=== PATIENT | female | born 1965 | race Two or more races ===

== ENCOUNTER 2017-08-28 05:49 | Inpatient (IN) | payer BC ==
[2017-08-28] VITALS (26 sets, daily range): BP systolic 87–121; BP diastolic 49–84; PULSE 86–120; RESP 11–20; Ht 170.2 cm; Wt 79.2 kg
[~2017-08-28] VITALS: Ht 170.2 cm; Wt 79.2 kg
[~2017-08-28 05:49] MED LIST: AMIT10TA6 PO; CETI-240 PO; CYCL-319 PO; FOLI-49 PO; GABA300C PO; LISI20TA11 PO; MELO-210 PO; METF500T4 PO; PREG150C PO; SIMV40TA2 PO
--- NOTE | 2017-08-28 07:04 | HPN ---
Date/Time of Note Date/Time of Note DATE: 08/28/17 TIME: 07:03 Interval H&P Admission Note Pt. seen H&P reviewed: No system changes PEBBLES PIMENTEL MD Aug 28, 2017 07:03
[2017-08-28] MEDS ORDERED: METF500T4 PO (07:26)
[2017-08-28] MEDS ORDERED: CYCLOBENZAPRINE 10 MG TAB PO PRN (07:30)
[2017-08-28] MEDS ORDERED: DIPHENHYDRAMINE 50 MG INJ IV PRN ×2 (07:30→09:30)
[2017-08-28] MEDS ORDERED: HYDROmorphONE 1 MG/ML SYG IV PRN (07:30)
[2017-08-28] MEDS ORDERED: MAGNESIUM HYDROXIDE 30ML CUP PO PRN (07:30)
[2017-08-28] MEDS ORDERED: ONDANSETRON 4 MG INJ IV PRN ×2 (07:30→09:30)
[2017-08-28] MEDS ORDERED: ACETAMINOPHEN 325 MG TAB PO PRN (07:30)
[2017-08-28] MEDS ORDERED: DIPHENHYDRAMINE 25 MG CAP PO PRN (07:30)
[2017-08-28] MEDS ORDERED: PROCHLORPERAZINE 10 MG INJ IV PRN ×2 (07:30→09:30)
[2017-08-28] MEDS ORDERED: CEPASTAT LOZENGE MT PRN (07:30)
[2017-08-28] MEDS ORDERED: HYDROCODONE/APAP (5/325) TAB PO PRN (07:30)
[2017-08-28] MEDS ORDERED: NALOXONE (0.4 MG/ML) INJ IV PRN (07:30)
[2017-08-28] MEDS ORDERED: BUPIVACAINE 0.25% (MPF) 30 ML INJ ONE (07:39)
[2017-08-28] MEDS ORDERED: GELATIN SIZE 100 SPONGE ONE (07:39)
[2017-08-28] MEDS ORDERED: CA CHLORIDE 10% 10 ML SYRINGE ONE (07:40)
[2017-08-28] MEDS ORDERED: THROMBIN 5000 UNIT VIAL ONE (07:40)
[2017-08-28] MEDS ORDERED: POLYMYXIN/BACITRACIN 1L IRRIG ONE (07:48)
[2017-08-28] MEDS ORDERED: SUCCINYLCHOLINE CHLORIDE 100 MG/5 ML SYG IV ONE (07:51)
[2017-08-28] MEDS ORDERED: PROPOFOL 20 ML ONE (07:51)
[2017-08-28] MEDS ORDERED: LIDOCAINE 2% (SDV) 5 ML INJ ONE (07:51)
[2017-08-28] MEDS ORDERED: FENTAnyl 50 MCG/ML VIAL ONE ×2 (07:52→09:56)
[2017-08-28] MEDS ORDERED: MIDAZOLAM 1 MG/ML 2 ML INJ ONE (07:52)
[2017-08-28] MEDS ORDERED: OCULAR LUBRICANT 3.5 GM OPH OINT ONE (07:59)
[2017-08-28] MEDS ORDERED: CEFAZOLIN 1 GM INJ ONE (08:33)
[2017-08-28] MEDS ORDERED: METOCLOPRAMIDE 10 MG INJ ONE (08:33)
[2017-08-28] MEDS ORDERED: ONDANSETRON 4 MG INJ ONE ×2 (08:33→10:41)
[2017-08-28] MEDS ORDERED: DEXAMETHASONE 4 MG/ML 1 ML INJ ONE (08:33)
[2017-08-28] MEDS ORDERED: PHENYLephrine (100 MCG/ML) 5ML SYG ONE (08:44)
[2017-08-28] MEDS ORDERED: POLYMYXIN/BACITRACIN 1L IRRIG IRR ONE (08:51)
[2017-08-28] MEDS ORDERED: ROCURONIUM 50 MG INJ ONE (08:51)
[2017-08-28] MEDS ORDERED: BUPIVACAINE 0.5% (SDV) 30 ML INJ INJ ONE (08:51)
[2017-08-28] MEDS ORDERED: HYDROmorphONE 2 MG/ML SYG ONE (08:52)
[2017-08-28] MEDS ORDERED: ACETAMINOPHEN 1000MG/100ML IV 100 ML ONE (08:54)
[2017-08-28] MEDS ORDERED: PREGABALIN 75 MG CAP PO SCH (09:00)
[2017-08-28] MEDS ORDERED: EPHEDrine SULFATE 50 MG/5 ML SYG ONE (09:13)
[2017-08-28] MEDS ORDERED: hydrALAzine 20 MG INJ IV PRN (09:30)
[2017-08-28] MEDS ORDERED: INSULIN ASPART [NOVOLOG] 3 ML PEN SC ONE (09:30)
[2017-08-28] MEDS ORDERED: HYDROmorphONE (0.2 MG/ML) 10ML SYG IV PRN ×2 (09:30)
[2017-08-28] MEDS ORDERED: FENTAnyl 50 MCG/ML VIAL IV PRN (09:30)
[2017-08-28] MEDS ORDERED: LABETALOL HCL 20MG INJ IV PRN (09:30)
[2017-08-28] MEDS ORDERED: EPHEDrine SULFATE 50 MG/5 ML SYG IV PRN (09:30)
[2017-08-28] MEDS ORDERED: MEPERIDINE 25 MG INJ IV PRN (09:30)
[2017-08-28] MEDS ORDERED: SUGAMMADEX SODIUM 200 MG/2 ML VIAL IV ONE (10:37)
--- NOTE | 2017-08-28 11:33 | SIPON ---
Date/Time of Note Date/Time of Note DATE: 08/28/17 TIME: 11:31 Operative Report Preoperative Diagnosis L3-S1 stenosis Postoperative Diagnosis same Operation/Procedure Performed L3-S1 central decompressive laminectomy Surgeon Hernando assistant printer floor covering DAGOBERTO Tomlin Anesthesia: general Estimated blood loss: 50 - 100 ml's Transfusion Required none Specimen none Grafts/Implants none Complications none PEBBLES PIMENTEL MD Aug 28, 2017 11:33
[2017-08-28] MEDS ORDERED: METOPROLOL 5 MG INJ IV ONE (12:00)
[2017-08-28] MEDS ORDERED: HYDROmorphONE 0.2 MG/ML PCA IV SCH (12:00)
[2017-08-28] MEDS ORDERED: METOPROLOL 5 MG INJ ONE (12:02)
--- NOTE | 2017-08-28 12:30 | OPR ---
DATE OF OPERATION: 08/28/2017 PREOPERATIVE DIAGNOSIS: L3 to S1 central stenosis. POSTOPERATIVE DIAGNOSIS: L3 to S1 central stenosis. OPERATION PERFORMED: 1. L3 to S1 central decompressive laminectomy with removal of spinous processes of L3, L4 and L5. 2. Partial fasciectomy and foraminotomy at L3-4. 3. Partial fasciectomy and foraminotomy at L4-5. 4. Partial fasciectomy and foraminotomy at L5-S1. 5. Decompression of exiting and traversing nerve root at L3-4. 6. Decompression of exiting and traversing nerve root at L4-5. 7. Decompression of exiting and traversing nerve root at L5-S1. 8. Use of intraoperative microscope for microdissection. 9. Use of intraoperative neuro monitoring during entire surgical procedure. 10. Use of intraoperative fluoroscopy for localization. 11. Epidural pain medication injection with 0.25 percent Marcaine with epinephrine for postop analgesia and catheter removed. 12. Cosmetic closure of 6 cm incision. SURGEON: Avelino Villagomez MD HEAD MILLER: DAGOBERTO Cheatham ANESTHESIA: General. ANESTHESIOLOGIST: Mere Evans MD ESTIMATED BLOOD LOSS: 50-100 mL. TRANSFUSION: None. SPECIMENS: None. GRAFTS AND IMPLANTS: NuShield barrier. COMPLICATIONS: None. BRIEF PREOPERATIVE HISTORY: The patient is a 52-year-old female with a history of breast cancer and diabetes, who presented with significant lower extremity neuro claudication secondary to severe stenosis at multiple levels seen on MRI at L3-4, L4-5, L5- S1. The patient was indicated for surgical procedure after failing conservative management. The patient was consented for the surgical procedure as stated above and consented for the central decompressive laminectomy, platelet rich plasma as well as epidural pain medication and possible adjacent level. The patient understood the risks, benefits, and alternatives. OPERATION IN DETAIL: The patient was brought to the operating room, placed under anesthesia by Dr. Evans and given 2 g of Ancef. The patient was turned prone onto Bruce frame. All bony prominences were appropriately padded. Lumbar spine was prepped and draped in the usual sterile fashion. Tuohy spinal needle was placed on a lateral localizing fluoroscopic image for verification of proper level for incision length and started with our incision after 0.25 percent Marcaine with epinephrine was injected subcutaneously. A subperiosteal dissection was taken out to L3, L4 and L5 bilaterally. Retractors were placed and Kochers were placed within the wound for verification on the spinous process of our decompressive levels, which were verified for L3-4, L4-5 and L5- S1. We removed the spinous processes of L3, L4 and L5 and then started with our decompressive procedure with removing the central decompressive laminectomy and bilateral partial fasciectomies and foraminotomies at L3-4, L4-5, and L5-1, respectively. At L3-4, we decompressed the exiting L3 traversing L4 nerve root. At L4-5, we decompressed the exiting L4 and traversing L5 nerve root. At L5-S1, we decompressed the exiting and traversing nerve roots. This was all done under microscope. At the conclusion of the decompression, verified exiting and traversing nerve roots at each level and maintaining hemostasis using FloSeal as well as bipolar cautery. Copious irrigation and verified decompression. Once completed, we placed the epidural catheter and epidural space injected with 4 mL of 0.25 percent Marcaine and 100 mcg of Fentanyl. We removed the catheter. At this time, we also placed a NuShield barrier over the old exposed thecal sac and started with our closing procedure over a medium Hemovac drain that was secured with 2-0 nylon. The fascia was closed with number 1 Vicryl, the subcutaneous with 2-0 Vicryl and running 4-0 Monocryl. The subcutaneous was injected with 0.25 percent Marcaine for postop analgesia. I placed Dermabond over the wound, secured down with Tegaderm, and the patient was turned supine onto the hospital bed, taken to recovery room in stable condition. All instruments, sponge counts, and needles were correct at the conclusion of the procedure. The patient had no complications and will be admitted for postop pain control, physical therapy, antibiotics, and discharged when appropriate. Dictated By: Avelino Villagomez MD /[email or web address]/[email or web address] /Document#: [id number] BOOGIE
--- NOTE | 2017-08-28 13:29 | RADRPT ---
PROCEDURE: Intraoperative imaging of the lumbar spine with fluoroscopy. CLINICAL INDICATION: Back pain. Intraoperative. TECHNIQUE: 6 images of the lumbar spine were obtained in the operating room with an image intensif ier. No radiologist was in attendance. Fluoroscopy time is 13.9 seconds. COMPARISON: No prior study is available for comparison. FINDINGS: Images demonstrate posterior surgical instruments in the lumbar spine. IMPRESSION: 1. Intraoperative imaging of the lumbar spine. RPTAT: QQ .Tex Ramos MD, MD Date Time Electronically viewed and signed by .Tex Ramos MD, MD on 08/28/2017 13:29 .R/
[2017-08-28] MEDS: DOCUSATE SODIUM 100 MG CAP PO SCH ×2 (14:31→20:30)
[2017-08-28] MEDS: FOLIC ACID 1 MG TAB PO SCH (14:32)
[2017-08-28] MEDS: LISINOPRIL 20 MG TAB PO SCH (14:32)
[2017-08-28] MEDS: CEFAZOLIN 1 GM/50 ML (PMX) 50 ML IVPB SCH ×2 (14:33→20:29)
[2017-08-28 14:58] LABS: BASOPHILS % 0.3 % (0.0-2.0); EOSINOPHILS % 0.1 % (0.0-7.0); HEMATOCRIT 39.9 % (37.0-47.0); HEMOGLOBIN 12.8 g/dl (12.0-16.0); LYMPHOCYTES # 1.2 10^3/ul (0.8-2.9); LYMPHOCYTES % 12.6 % (15.0-51.0); MEAN CORPUSCULAR HEMOGLOBIN 30.5 pg (29.0-33.0); MEAN CORPUSCULAR HGB CONC 32.1 g/dl (32.0-37.0); MEAN CORPUSCULAR VOLUME 95.2 fl (82.0-101.0); MONOCYTE # 0.1 10^3/ul (0.3-0.9); MONOCYTES % 1.4 % (0.0-11.0); NEUTROPHIL # 8.4 10^3/ul (1.6-7.5); NEUTROPHILS % 85.1 % (39.0-77.0); PLATELET COUNT 190 10^3/UL (140-415); RED BLOOD COUNT 4.19 10^6/ul (4.20-5.40); RED CELL DISTRIBUTION WIDTH 12.4 % (11.5-14.5); WHITE BLOOD COUNT 9.8 10^3/ul (4.8-10.8)
[2017-08-28 15:21] LABS: CREATININE 0.67 mg/dl (0.44-1.00); POTASSIUM 3.8 mmol/L (3.5-5.1)
--- NOTE | 2017-08-28 17:06 | CONS ---
DATE OF ADMISSION: 08/28/2017 DATE OF CONSULTATION: 08/28/2017 CHIEF COMPLAINT: This is a 52-year-old female who was brought in for laminectomy surgery. 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 This was performed by the surgeon. They ask for medical consult request. Patient denies any present chest pain or shortness of breath. No nausea, vomiting, or fevers or chills, or diarrhea or constipation. She is on a CARDIOLOGY TECHNOLOGIST pump presently and has a Hemovac in place. Apparently, she had been having lower extremity claudication prior to the surgery and the decision was made based on the MRI findings of severe stenosis in L3 to S1 to perform the surgery that has been mentioned above earlier today. PAST MEDICAL HISTORY: Above. ALLERGIES: NO KNOWN DRUG ALLERGIES. HOME MEDICATIONS: Cetirizine 10 mg daily, cyclobenzaprine 10 mg t.i.d., lisinopril 20 mg daily, Zocor 40 mg at bedtime, amitriptyline 10 mg at bedtime, Neurontin 300 mg at bedtime, Mobic 50 mg daily, Lyrica 150 mg daily, metformin 500 mg daily, folic acid 1 mg daily. PAST SURGICAL HISTORY: in the past and breast cancer surgery in the past including implant and reconstruction. SOCIAL HISTORY: Negative for smoking, drinking, IV drug abuse. FAMILY HISTORY: Mother has diabetes and high cholesterol. Father has diabetes and high cholesterol. PHYSICAL EXAMINATION: VITAL SIGNS: Today vital signs, T-max 98, pulse is 94-108, respirations 13-17, blood pressure is 108/70, satting at 94-96% room air. GENERAL: Patient is lying in bed, answers question appropriately, slight lethargic but in no acute distress. HEENT: Pupils equal, round, react to light. Extraocular muscles intact. NECK: Supple. No thyromegaly. LUNGS: Clear to auscultation bilaterally. HEART: S1, S2 heard. No rubs or gallops. ABDOMEN: Soft, nontender, nondistended. Normal bowel sounds. No rebound or guarding. MUSCULOSKELETAL: No lower extremity edema bilaterally. NEUROLOGIC: No focal deficits. LABORATORY: There are no new labs from this morning. ASSESSEMENT AND PLAN: A 52-year-old female, status post laminectomy at L3 to S1 earlier today for severe stenosis of L3 to S1 after experiencing claudication with prior history of breast cancer, diabetes, hypertension, high cholesterol. 1. Status post laminectomy for severe stenosis. Again, continue to follow postop recommendations from primary team including CARDIOLOGY TECHNOLOGIST pump for pain control medications, monitor Hemovac, physical therapy. Follow up postop recommendations. 2. Essential hypertension. Continue current medications ordered by primary team. 3. Diabetes. Continue metformin. Monitor sugars. 4. High cholesterol. Continue current medications. Consider checking lipid panel. 5. History of prior breast cancer. Continue to monitor for now. We will continue to follow along with you. Dictated By: Anton Medina MD /[email or web address]/[email or web address] /Document#: [id number]
[2017-08-28] MEDS: GABAPENTIN 300 MG CAP PO SCH (20:30)
[2017-08-28] MEDS: AMITRIPTYLINE 10 MG TAB PO SCH (22:47)
[2017-08-29 00:23] VITALS: BP 90/52; RESP 18
[2017-08-29] MEDS: CEFAZOLIN 1 GM/50 ML (PMX) 50 ML IVPB SCH (04:55)
[2017-08-29] MEDS: PANTOPRAZOLE (EC) 40 MG TAB PO SCH (05:04)
[2017-08-29 05:12] LABS: BASOPHILS % 0.1 % (0.0-2.0); HEMATOCRIT 30.6 % (37.0-47.0); LYMPHOCYTES # 1.6 10^3/ul (0.8-2.9); LYMPHOCYTES % 15.1 % (15.0-51.0); MEAN CORPUSCULAR HEMOGLOBIN 29.2 pg (29.0-33.0); MEAN CORPUSCULAR HGB CONC 32.7 g/dl (32.0-37.0); MEAN CORPUSCULAR VOLUME 89.5 fl (82.0-101.0); MEAN PLATELET VOLUME 10.2 fl (7.4-10.4); MONOCYTE # 0.6 10^3/ul (0.3-0.9); NEUTROPHIL # 8.1 10^3/ul (1.6-7.5); NEUTROPHILS % 78.1 % (39.0-77.0); PLATELET COUNT 199 10^3/UL (140-415); RED BLOOD COUNT 3.42 10^6/ul (4.20-5.40); RED CELL DISTRIBUTION WIDTH 12.6 % (11.5-14.5); WHITE BLOOD COUNT 10.4 10^3/ul (4.8-10.8)
[2017-08-29 05:48] LABS: CALCIUM 8.4 mg/dl (8.4-10.2); CREATININE 0.64 mg/dl (0.44-1.00); POTASSIUM 3.9 mmol/L (3.5-5.1)
[2017-08-29 08:18] VITALS: BP 90/55; RESP 14
[2017-08-29] MEDS: LISINOPRIL 20 MG TAB PO SCH (08:43)
[2017-08-29] MEDS: FOLIC ACID 1 MG TAB PO SCH (08:44)
[2017-08-29] MEDS: DOCUSATE SODIUM 100 MG CAP PO SCH ×2 (08:44→20:58)
[2017-08-29] MEDS: metFORMIN 500 MG TAB PO SCH (08:44)
[2017-08-29] MEDS: HYDROCODONE/APAP (5/325) TAB PO PRN ×2 (10:04→17:13)
[2017-08-29 10:14] VITALS: BP 97/55; PULSE 114; RESP 16
--- NOTE | 2017-08-29 12:46 | PN ---
Date/Time of Note Date/Time of Note DATE: 08/29/17 TIME: 12:44 Assessment/Plan VTE Prophylaxis VTE Prophylaxis Intervention: ambulation, SCD's VTE Contraindication Reason: bleeding Lines/Catheters IV Catheter Type (from Nrsg): Saline Lock Urinary Cath still in place: No Assessment/Plan Chief Complaint/Hosp Course doing well after lumbar surgery Problems: Assessment/Plan s/p L3-S1 lumbar laminectomy bolus for low BP in 90's pain control with PO meds [place] and Flexeril Drain removed DC plan for tomorrow Wound CDI Calfs soft IS Ambulation soft corset, no brace needed Exam/Review of Systems Vital Signs Vitals Vital Signs Date Time Temp Pulse Resp B/P Pulse Ox O2 Delivery O2 Flow Rate FiO2 08/29/17 10:14 98.8 114 16 97/55 98 Room Air 08/28/17 21:55 2.0 Intake and Output 08/28/17 08/28/17 08/29/17 15:00 23:00 07:00 Intake Total 1300 ml 580 ml 950 ml Output Total 440 ml 970 ml 920 ml Balance 860 ml -390 ml 30 ml Results Result Diagram: 08/29/17 0444 08/29/17 0444 Results 24 hrs Laboratory Tests Test 08/28/17 14:48 08/29/17 04:44 White Blood Count 9.8 10.4 Red Blood Count 4.19 L 3.42 L Hemoglobin 12.8 10.0 #L Hematocrit 39.9 30.6 #L Mean Corpuscular Volume 95.2 89.5 Mean Corpuscular Hemoglobin 30.5 29.2 Mean Corpuscular Hemoglobin Concent 32.1 32.7 Red Cell Distribution Width 12.4 12.6 Platelet Count 190 199 Mean Platelet Volume 10.0 10.2 Neutrophils % 85.1 H 78.1 H Lymphocytes % 12.6 L 15.1 Monocytes % 1.4 6.0 Eosinophils % 0.1 0.0 Basophils % 0.3 0.1 Nucleated Red Blood Cells % 0.0 0.0 Neutrophils # 8.4 H 8.1 H Lymphocytes # 1.2 1.6 Monocytes # 0.1 L 0.6 Eosinophils # 0.0 0.0 Basophils # 0.0 0.0 Nucleated Red Blood Cells # 0.0 0.0 Sodium Level 141 138 Potassium Level 3.8 3.9 Chloride Level 102 105 Carbon Dioxide Level 28 28 Anion Gap 15 9 # Blood Urea Nitrogen 10 11 Creatinine 0.67 0.64 Glucose Level 156 120 Calcium Level 9.0 8.4 Medications Medications Current Medications Acetaminophen/ Hydrocodone Bitart ([place] (5/325)) 1 tab Q4H PRN PO PAIN LEVEL 1 -5; Start 08/28/17 at 07:30 Acetaminophen/ Hydrocodone Bitart ([place] (5/325)) 2 tab Q4H PRN PO PAIN LEVEL 6 -10 Last administered on 08/29/17 10:04; Admin Dose 2 TAB; Start 08/28/17 at 07 :30 Hydromorphone HCl (Dilaudid) 0.2 mg Q1H PRN IV BREAKTHROUGH PAIN; Start at 07:30 Ondansetron HCl (Zofran Inj) 4 mg Q6H PRN IV NAUSEA AND/OR VOMITING; Start at 07:30 Prochlorperazine (Compazine Inj) 10 mg Q6H PRN IV NAUSEA AND/OR VOMITING; Start 08/28/17 at 07:30 Docusate Sodium (Colace) 100 mg BID PO Last administered on 08/29/17 08:44; Admin Dose 100 MG; Start 08/28/17 at 09:00 Pantoprazole (Protonix Tab) 40 mg DAILY@06 PO Last administered on 08/29/17 05 :04; Admin Dose 40 MG; Start 08/29/17 at 06:00 Magnesium Hydroxide (Milk Of Mag) 30 ml HS PRN PO CONSTIPATION/DYSPEPSIA; Start 08/28/17 at 07:30 Acetaminophen (Tylenol Tab) 650 mg Q4H PRN PO [place] OR TEMP GREATER THAN 101.3F; Start 08/28/17 at 07:30 Phenol (Cepastat Lozenge) 1 lozenge PRN PRN MT SORE THROAT; Start 08/28/17 at 07:30 Diphenhydramine HCl (Benadryl) 25 mg Q6H PRN PO ITCHING; Start 08/28/17 at 07: 30 Diphenhydramine HCl (Benadryl) 25 mg Q6H PRN IV ITCHING; Start 08/28/17 at 07: 30 Naloxone HCl (Narcan) 0.2 mg Q2M PRN IV RR 8 BREATHS/MIN OR LESS; Start at 07:30 Hydromorphone HCl (Dilaudid TAR PROCESSING TECHNICIAN) TAR PROCESSING TECHNICIAN to be started in PACU Q4PCA IV Last administered on 08/28/17 12:10; Admin Dose 6 MG; Start 08/28/17 at 12:00 Miscellaneous Information 1. Hold TAR PROCESSING TECHNICIAN at 1,000... TAR PROCESSING TECHNICIAN IV ; Start 08/28/17 at 07: 30 Amitriptyline HCl (Elavil) 10 mg QHS PO Last administered on 08/28/17 22:47; Admin Dose 10 MG; Start 08/28/17 at 21:00 Folic Acid (Folic Acid) 1 mg DAILY PO Last administered on 08/29/17 08:44; Admin Dose 1 MG; Start 08/28/17 at 09:00 Gabapentin (Neurontin) 300 mg QHS PO Last administered on 08/28/17 20:30; Admin Dose 300 MG; Start 08/28/17 at 21:00 Lisinopril (Zestril) 20 mg DAILY PO ; Start 08/28/17 at 09:00 Cyclobenzaprine HCl (Flexeril) 10 mg TID PRN PO MUSCLE SPASMS; Start 08/28/17 at 07:30 PEBBLES PIMENTEL MD Aug 29, 2017 12:46
[2017-08-29] MEDS: CYCLOBENZAPRINE 10 MG TAB PO PRN (12:50)
--- NOTE | 2017-08-29 12:55 | PN ---
Date/Time of Note Date/Time of Note DATE: 08/29/17 TIME: 12:40 Assessment/Plan VTE Prophylaxis VTE Prophylaxis Intervention: ambulation Lines/Catheters IV Catheter Type (from Nrs): Saline Lock Urinary Cath still in place: Yes Reason Cath still needed: urinary retention Assessment/Plan Chief Complaint/Hosp Course ASSESSEMENT AND PLAN: 52-year-old female, status post laminectomy at L3 to S1 for severe stenosis of L3 to S1 POD# 1, performed after experiencing claudication with prior history of breast cancer, diabetes, hypertension, high cholesterol. 1. Status post laminectomy for severe stenosis. Again, POD # 1 - continue to follow postop recommendations from primary team including TOOL BUILDER pump for pain control medications, monitor Hemovac, physical therapy. - Follow up postop recommendations. 2. Essential hypertension. Continue current medications ordered by primary team. 3. Diabetes. Continue metformin. Monitor sugars. 4. High cholesterol. Continue current medications. Consider checking lipid panel. 5. History of prior breast cancer. Continue to monitor for now. 6. hypotension - asymptomatic sys bp = 90's - will give 250 NS bolus x 1, monitor We will continue to follow along with you. Problems: Subjective 24 Hr Interval Summary Free Text/Dictation No acute events overnight, seen by ortho team this AM. Exam/Review of Systems Vital Signs Vitals Vital Signs Date Time Temp Pulse Resp B/P Pulse Ox O2 Delivery O2 Flow Rate FiO2 08/29/17 10:14 98.8 114 16 97/55 98 Room Air 08/28/17 21:55 2.0 Intake and Output 08/28/17 08/28/17 08/29/17 15:00 23:00 07:00 Intake Total 1300 ml 580 ml 950 ml Output Total 440 ml 970 ml 920 ml Balance 860 ml -390 ml 30 ml Exam GENERAL: Patient is lying in bed, answers question appropriately, slight lethargic but in no acute distress. HEENT: Pupils equal, round, react to light. Extraocular muscles intact. NECK: Supple. No thyromegaly. LUNGS: Clear to auscultation bilaterally. HEART: S1, S2 heard. No rubs or gallops. ABDOMEN: Soft, nontender, nondistended. Normal bowel sounds. No rebound or guarding. MUSCULOSKELETAL: No lower extremity edema bilaterally. NEUROLOGIC: No focal deficits. Results Result Diagram: 08/29/17 0444 08/29/17 0444 Results 24 hrs Laboratory Tests Test 08/28/17 14:48 08/29/17 04:44 White Blood Count 9.8 10.4 Red Blood Count 4.19 L 3.42 L Hemoglobin 12.8 10.0 #L Hematocrit 39.9 30.6 #L Mean Corpuscular Volume 95.2 89.5 Mean Corpuscular Hemoglobin 30.5 29.2 Mean Corpuscular Hemoglobin Concent 32.1 32.7 Red Cell Distribution Width 12.4 12.6 Platelet Count 190 199 Mean Platelet Volume 10.0 10.2 Neutrophils % 85.1 H 78.1 H Lymphocytes % 12.6 L 15.1 Monocytes % 1.4 6.0 Eosinophils % 0.1 0.0 Basophils % 0.3 0.1 Nucleated Red Blood Cells % 0.0 0.0 Neutrophils # 8.4 H 8.1 H Lymphocytes # 1.2 1.6 Monocytes # 0.1 L 0.6 Eosinophils # 0.0 0.0 Basophils # 0.0 0.0 Nucleated Red Blood Cells # 0.0 0.0 Sodium Level 141 138 Potassium Level 3.8 3.9 Chloride Level 102 105 Carbon Dioxide Level 28 28 Anion Gap 15 9 # Blood Urea Nitrogen 10 11 Creatinine 0.67 0.64 Glucose Level 156 120 Calcium Level 9.0 8.4 Medications Medications Current Medications Acetaminophen/ Hydrocodone Bitart ([place] (5/325)) 1 tab Q4H PRN PO PAIN LEVEL 1 -5; Start 08/28/17 at 07:30 Acetaminophen/ Hydrocodone Bitart ([place] (5/325)) 2 tab Q4H PRN PO PAIN LEVEL 6 -10 Last administered on 08/29/17t 10:04; Admin Dose 2 TAB; Start 08/28/17 at 07 :30 Hydromorphone HCl (Dilaudid) 0.2 mg Q1H PRN IV BREAKTHROUGH PAIN; Start at 07:30 Ondansetron HCl (Zofran Inj) 4 mg Q6H PRN IV NAUSEA AND/OR VOMITING; Start at 07:30 Prochlorperazine (Compazine Inj) 10 mg Q6H PRN IV NAUSEA AND/OR VOMITING; Start 08/28/17 at 07:30 Docusate Sodium (Colace) 100 mg BID PO Last administered on 08/29/17 08:44; Admin Dose 100 MG; Start 08/28/17 at 09:00 Pantoprazole (Protonix Tab) 40 mg DAILY@06 PO Last administered on 08/29/17 05 :04; Admin Dose 40 MG; Start 08/29/17 at 06:00 Magnesium Hydroxide (Milk Of Mag) 30 ml HS PRN PO CONSTIPATION/DYSPEPSIA; Start 08/28/17 at 07:30 Acetaminophen (Tylenol Tab) 650 mg Q4H PRN PO [place] OR TEMP GREATER THAN 101.3F; Start 08/28/17 at 07:30 Phenol (Cepastat Lozenge) 1 lozenge PRN PRN MT SORE THROAT; Start 08/28/17 at 07:30 Diphenhydramine HCl (Benadryl) 25 mg Q6H PRN PO ITCHING; Start 08/28/17 at 07: 30 Diphenhydramine HCl (Benadryl) 25 mg Q6H PRN IV ITCHING; Start 08/28/17 at 07: 30 Naloxone HCl (Narcan) 0.2 mg Q2M PRN IV RR 8 BREATHS/MIN OR LESS; Start at 07:30 Hydromorphone HCl (Dilaudid TOOL BUILDER) TOOL BUILDER to be started in PACU Q4PCA IV Last administered on 08/28/17 12:10; Admin Dose 6 MG; Start 08/28/17 at 12:00 Miscellaneous Information 1. Hold TOOL BUILDER at 1,000... TOOL BUILDER IV ; Start 08/28/17 at 07: 30 Amitriptyline HCl (Elavil) 10 mg QHS PO Last administered on 08/28/17 22:47; Admin Dose 10 MG; Start 08/28/17 at 21:00 Folic Acid (Folic Acid) 1 mg DAILY PO Last administered on 08/29/17 08:44; Admin Dose 1 MG; Start 08/28/17 at 09:00 Gabapentin (Neurontin) 300 mg QHS PO Last administered on 08/28/17 20:30; Admin Dose 300 MG; Start 08/28/17 at 21:00 Lisinopril (Zestril) 20 mg DAILY PO ; Start 08/28/17 at 09:00 Cyclobenzaprine HCl (Flexeril) 10 mg TID PRN PO MUSCLE SPASMS; Start 08/28/17 at 07:30 SHAMAR SHABAZZ Aug 29, 2017 12:51
[2017-08-29] MEDS ORDERED: SOD CHLORIDE 0.9% 250 ML IV ONE (13:00)
[2017-08-29 14:00] VITALS: BP 101/56; RESP 18
[2017-08-29 19:45] VITALS: BP 100/60; PULSE 70; RESP 18
[2017-08-29] MEDS: AMITRIPTYLINE 10 MG TAB PO SCH (20:58)
[2017-08-29] MEDS: GABAPENTIN 300 MG CAP PO SCH (20:58)
[2017-08-30 02:05] VITALS: BP 102/64; RESP 18
[2017-08-30] MEDS: PANTOPRAZOLE (EC) 40 MG TAB PO SCH (05:28)
[2017-08-30] MEDS: HYDROCODONE/APAP (5/325) TAB PO PRN ×3 (05:56→16:19)
[2017-08-30] MEDS: DOCUSATE SODIUM 100 MG CAP PO SCH (08:53)
[2017-08-30] MEDS: metFORMIN 500 MG TAB PO SCH (08:54)
[2017-08-30] MEDS: FOLIC ACID 1 MG TAB PO SCH (08:54)
[2017-08-30] MEDS: LISINOPRIL 20 MG TAB PO SCH (08:54)
[2017-08-30] MEDS: CYCLOBENZAPRINE 10 MG TAB PO PRN (08:57)
--- NOTE | 2017-08-30 11:18 | DS ---
Date/Time of Note Date/Time of Note DATE: 08/30/17 TIME: 11:17 Discharge Summary Admission/Discharge Info Admit Date/Time Aug 28, 2017 at 05:49 Discharge Date/Time 08/30 Discharge Diagnosis L3-S1 decompression Patient Condition: Good Consults Dr. Medina Procedures L3-S1 decompression Hx of Present Illness Diabetes, HTN, BRCA Hospital Course ASSESSEMENT AND PLAN: 52-year-old female, status post laminectomy at L3 to S1 for severe stenosis of L3 to S1 POD# 1, performed after experiencing claudication with prior history of breast cancer, diabetes, hypertension, high cholesterol. 1. Status post laminectomy for severe stenosis. Again, POD # 1 - continue to follow postop recommendations from primary team including TRAFFIC SIGNAL TECHNICIAN pump for pain control medications, monitor Hemovac, physical therapy. - Follow up postop recommendations. 2. Essential hypertension. Continue current medications ordered by primary team. 3. Diabetes. Continue metformin. Monitor sugars. 4. High cholesterol. Continue current medications. Consider checking lipid panel. 5. History of prior breast cancer. Continue to monitor for now. 6. hypotension - asymptomatic sys bp = 90's - will give 250 NS bolus x 1, monitor We will continue to follow along with you. Home Meds Reported Medications Metformin Hcl* (Metformin Hcl*) 500 Mg Tablet, 40 MG PO WITH BREAKFAST, #30 TAB 08/28/17 Pregabalin* (Lyrica*) 150 Mg Capsule, 150 MG PO DAILY, CAP 11/07/15 Simvastatin* (Zocor*) 40 Mg Tablet, 40 MG PO QHS, #30 TAB 11/07/15 Folic Acid* (Folic Acid*) 1 Mg Tablet, 1 MG PO DAILY, TAB 11/07/15 Cyclobenzaprine Hcl* (Cyclobenzaprine Hcl*) 10 Mg Tablet, 10 MG PO TID, TAB 11/07/15 Lisinopril* (Lisinopril*) 20 Mg Tablet, 20 MG PO DAILY, #30 TAB 11/07/15 Metformin* (Glucophage*) 500 Mg Tab, 500 MG PO DAILY, TAB 11/07/15 Gabapentin* (Neurontin*) 300 Mg Capsule, 300 MG PO QHS, CAP 11/07/15 Meloxicam* (Mobic*) 15 Mg Tablet, 15 MG PO DAILY, TAB 11/07/15 Cetirizine Hcl* (Cetirizine Hcl*) 10 Mg Tablet, 10 MG PO DAILY, TAB 11/07/15 Amitriptyline Hcl* (Amitriptyline Hcl*) 10 Mg Tablet, 10 MG PO QHS, #30 TAB 11/07/15 Follow-up Plan call office Primary Care Provider Eduin Feng MD Time spent on discharge: < 30 minutes PEBBLES PIMENTEL MD Aug 30, 2017 11:18
[2017-08-30 16:32] VITALS: BP 124/73; RESP 20
== END 2017-08-30 17:33 | disposition home or self-care (01) | DRG 517 ==
LOC: REC 05:49 → MS1 13:20
PROVIDERS: ADMIT Orthopaedic Surgery Orthopaedic Surgery of the Spine; ATTEND Orthopaedic Surgery Orthopaedic Surgery of the Spine
PROC: 4A11X4G Monitoring of Peripheral Nervous Electrical Activity, Intraoperative, External Approach (ICD-10-PCS; 2017-08-28)
PROC: 01NB0ZZ Release Lumbar Nerve, Open Approach (ICD-10-PCS; principal; 2017-08-28 08:00)
DX: M48.062 Spinal stenosis, lumbar region with neurogenic claudication (principal); I95.9 Hypotension, unspecified; I10 Essential (primary) hypertension; Z85.3 Personal history of malignant neoplasm of breast; E11.9 Type 2 diabetes mellitus without complications; E78.00 Pure hypercholesterolemia, unspecified; E78.5 Hyperlipidemia, unspecified
CPT/HCPCS: 72100; 80048; 82962; 85025; 86850; 86870; 86900; 86901; 86902; 86920; 86999; 87086; 97116; 97162; 97530; J0131; J0690; J1100; J1170; J1815; J2250; J2370; J2405; J2765; J3010; J7040; J7999; V2790